=== PATIENT | female | born 1990 | race Caucasian/White ===

== ENCOUNTER 2024-01-12 20:43 | Inpatient (IN) | payer OTHER ==
[2024-01-12 21:43] VITALS: BMI 31.9
[2024-01-12] MEDS ORDERED: Ibuprofen 800 MG TAB PO PRN (21:58)
[2024-01-12] MEDS ORDERED: Lidocaine 1% (PF) 30 ML VIAL SC PRN (21:58)
[2024-01-12] MEDS ORDERED: Misoprostol 200 MCG TAB PR PRN (21:58)
[2024-01-12] MEDS ORDERED: HYDROcodone/Acetaminophen 5/325 mg Tablet PO PRN ×2 (21:58)
[2024-01-12] MEDS ORDERED: Carboprost 250 MCG/ML AMP IM PRN (21:58)
[2024-01-12] MEDS ORDERED: Zolpidem Tartrate 5 MG TAB PO PRN (21:58)
[2024-01-12] MEDS ORDERED: Methylergonovine 0.2 MG/ML VIAL IM PRN (21:58)
[2024-01-12] MEDS ORDERED: Oxytocin 30 units/NS 500 ML 500 ML IV SCH ×2 (21:58)
[2024-01-12] MEDS ORDERED: hydrALAZINE 20 MG/ML VIAL SLOW IVP PRN (21:58)
[2024-01-12] MEDS ORDERED: Acetaminophen 500 MG TAB PO PRN (21:58)
[2024-01-12] MEDS ORDERED: Tranexamic Acid 1,000 MG/10 ML VIAL IVP PRN (21:58)
[2024-01-12] MEDS ORDERED: Diphenoxylate HCl/Atropine Tablet PO PRN ×2 (21:58)
[2024-01-12] MEDS ORDERED: Promethazine HCl 25 MG/ML VIAL IM PRN (21:58)
[2024-01-12] MEDS ORDERED: Ondansetron PF 4 MG/2 ML Vial IVP PRN (21:58)
[2024-01-12] MEDS ORDERED: Lactated Ringer's 1,000 ML IV SCH (22:00)
[2024-01-12 22:17] LABS: Hematocrit 34.5 % (34.9-44.5); Hemoglobin 11.4 g/dL (12.0-15.5); Mean Corpuscular Hemoglobin 28.9 pg (27.0-33.0); Mean Corpuscular Volume 87.3 fL (81.6-98.3); Mean Platelet Volume 11.8 fL (7.4-10.4); Platelet Count 200 10x3/uL (150-450); RBC Distribution Width 14.7 % (11.5-14.5); Red Blood Cell (RBC) Count 3.95 10x6/uL (3.90-5.03); White Blood Cell (WBC) Count 8.6 10x3/uL (3.5-10.5)
[2024-01-12 22:54] LABS: HBsAg Index 0.21 S/CO (0-0.99); Hep B Surf Ag - L&D Non-Reactive S/CO (NonReactive); Syphilis Antibody Nonreactive (Nonreactive); Syphilis Antibody Index 0.03 S/CO (<1.00 Non-Reactive)
[2024-01-12] MEDS: Misoprostol 100 MCG TAB VAG SCH (23:00)
[2024-01-13] MEDS: fentaNYL 50 mcg/mL 1 mL Vial SLOW IVP PRN (09:00)
[2024-01-13] MEDS: fentaNYL/Ropivacaine Epidural 100 ML ONE (09:51)
[2024-01-13] MEDS ORDERED: diphenhydrAMINE 50 MG/ML VIAL IVP PRN ×2 (10:09→11:08)
[2024-01-13] MEDS ORDERED: Promethazine HCl 25 MG/ML VIAL IM PRN ×2 (10:09→11:08)
[2024-01-13] MEDS ORDERED: Ondansetron PF 4 MG/2 ML Vial IVP PRN ×4 (10:09→11:08)
[2024-01-13] MEDS ORDERED: Moisturizing Cream (Eucerin) 113 GM JAR TOP PRN ×2 (10:09→11:08)
[2024-01-13] MEDS ORDERED: Acetaminophen 325 MG TAB PO PRN (10:09)
[2024-01-13] MEDS ORDERED: ePHEDrine Sulfate 50 MG/10 ML VIAL SLOW IVP PRN (10:09)
[2024-01-13] MEDS ORDERED: Naloxone HCl 0.4 mg/ml Vial IVP PRN ×4 (10:09→11:08)
[2024-01-13] MEDS ORDERED: Lactated Ringer's 500 ML IV PRN (10:09)
[2024-01-13] MEDS ORDERED: fentaNYL 2 mcg/Ropivacaine 0.2% Epidural 100 ML CADD EPIDURAL SCH (10:15)
[2024-01-13] MEDS ORDERED: Communication Order-Pharmacy FS SCH ×2 (10:15→11:15)
[2024-01-13 10:50] LABS: Analyzer IN Cardio CS NICU; RapidComm Collect By cbn; pH (Cord, venous) 7.218 (7.250-7.350)
[2024-01-13 10:51] LABS: Analyzer IN Cardio CS NICU; RapidComm Collect By cbn
[2024-01-13] MEDS ORDERED: diphenhydrAMINE 25 MG CAP PO PRN (10:57)
[2024-01-13] MEDS ORDERED: hydrALAZINE 20 MG/ML VIAL SLOW IVP PRN (10:57)
[2024-01-13] MEDS ORDERED: Lanolin Ointment 7 GM TUBE TOP PRN (10:57)
[2024-01-13] MEDS ORDERED: Simethicone Chewable 80 MG TAB PO PRN (10:57)
[2024-01-13] MEDS ORDERED: Meperidine HCl/PF 25 MG (1 mL) VIAL SLOW IVP PRN (11:08)
[2024-01-13] MEDS ORDERED: fentaNYL 50 mcg/mL 1 mL Vial SLOW IVP PRN (11:08)
[2024-01-13] MEDS ORDERED: Naloxone HCl 0.4 mg/ml Vial IV PRN (11:08)
[2024-01-13] MEDS ORDERED: Ketorolac Tromethamine 30 MG (1 mL) VIAL IVP SCH (11:15)
[2024-01-13] MEDS: Ketorolac Tromethamine 30 MG (1 mL) VIAL IVP SCH (17:34)
[2024-01-13] MEDS: CEFAZOLIN 2 GM VIAL ONE (19:24)
[2024-01-13] MEDS: Ondansetron PF 4 MG/2 ML Vial ONE (19:24)
[2024-01-13] MEDS: Oxytocin 10 UNITS/ML VIAL ONE (19:24)
[2024-01-13] MEDS: Azithromycin 500 MG VIAL ONE (19:24)
[2024-01-13] MEDS: Dexamethasone 10 MG/ML VIAL ONE ×2 (19:24)
[2024-01-13] MEDS: Dexmedetomidine 200 MCG/2 ML VIAL ONE (19:24)
[2024-01-13] MEDS: Promethazine HCl 25 MG/ML VIAL ONE (19:24)
[2024-01-13] MEDS: Ketorolac Tromethamine 30 MG (1 mL) VIAL ONE (19:25)
[2024-01-13] MEDS: PHENYLEPHRINE-NS 100 MCG/ML 10 ML SYRINGE ONE (19:25)
[2024-01-13] MEDS: Metoclopramide HCl 10 MG (2 mL) VIAL ONE (19:25)
[2024-01-13] MEDS: Morphine PF 10 MG/10 ML VIAL ONE (19:25)
[2024-01-13] MEDS: Boostrix 0.5 ML (Tdap) VIAL (>/=7 yrs of age) IM ONE (20:26)
[2024-01-13] MEDS: Docusate 100 MG CAP PO SCH (23:33)
[2024-01-13] MEDS: Ferrous Sulfate 325 MG TAB PO SCH (23:34)
[2024-01-14 05:37] LABS: Hemoglobin 9.3 g/dL (12.0-15.5); Mean Corpuscular HGB CONC 33.2 g/dL (32.0-36.0); Mean Corpuscular Hemoglobin 29.5 pg (27.0-33.0); Mean Corpuscular Volume 88.9 fL (81.6-98.3); Mean Platelet Volume 11.9 fL (7.4-10.4); Platelet Count 152 10x3/uL (150-450); RBC Distribution Width 14.9 % (11.5-14.5); Red Blood Cell (RBC) Count 3.15 10x6/uL (3.90-5.03); White Blood Cell (WBC) Count 11.1 10x3/uL (3.5-10.5)
[2024-01-14] MEDS ORDERED: ePHEDrine Sulfate 50 MG/10 ML VIAL ONE (07:00)
[2024-01-14] MEDS ORDERED: Bupivacaine 0.25% HCL 30 ML VIAL ONE (07:00)
[2024-01-14] MEDS: HYDROcodone/Acetaminophen 5/325 mg Tablet PO PRN ×2 (08:08→21:15)
[2024-01-14] MEDS: Prenatal Vitamin 1 TAB PO SCH (08:08)
[2024-01-14] MEDS: Ibuprofen 800 MG TAB PO SCH (17:13)
[2024-01-15 08:13] VITALS: BP 116/64; TEMP 98.4
== END 2024-01-15 13:20 | disposition home or self-care (01) | DRG 788 ==
LOC: CSHLD 20:43 → CSHPP 01-13 13:33
PROVIDERS: ADMIT Obstetrics & Gynecology; ATTEND Obstetrics & Gynecology
PROC: 10D00Z1 Extraction of Products of Conception, Low, Open Approach (ICD-10-PCS; principal; 2024-01-13)
DX: O99.284 Endocrine, nutritional and metabolic diseases complicating childbirth (principal); E03.9 Hypothyroidism, unspecified; Z3A.39 39 weeks gestation of pregnancy; Z37.0 Single live birth; Z79.890 Hormone replacement therapy; O76 Abnormality in fetal heart rate and rhythm complicating labor and delivery
CPT/HCPCS: 36415; 51702; 82805; 85027; 86780; 86850; 86900; 86901; 87340; J0665; J1100; J1885; J2274; J2405; J2550; J2590; J2765; J3010